=== PATIENT | female | born 1940 | race Caucasian/White ===

== ENCOUNTER 2017-06-16 11:02 | Emergency (ER) | payer MEDICARE, OTHER ==
[~2017-06-16] VITALS: Ht 157.5 cm; Wt 57.1 kg
[~2017-06-16 11:02] MED LIST: LEVA500T PO; Z.0.NO CURRENT MEDS
[2017-06-16 11:08] VITALS: BP 170/77; PULSE 85; RESP 16; TEMP 98.3; O2SAT 100
--- NOTE | 2017-06-16 11:38 | PD ---
HPI Chief Complaint: GI Complaint Time Seen by Provider: 11:37 Travel History International Travel<30 days: No Contact w/Intl Traveler<30days: No Traveled to known affect area: No History of Present Illness HPI 77-year-old female came to the emergency room with history of constipation/ obstipation since this morning. Patient says that she goes to the bathroom and moves her bowels every morning. She did so yesterday. Since then she has had normal meals at this morning had some coffee after which she felt like she had to move her bowels but was unsuccessful. She has had issues with constipation in the past which has been relieved by administering enema at home. Patient says she tried doing the same this morning but was unable to retain the enema since that came out as soon as she put it in. She has been very uncomfortable since then. She says she has this urge that she has to go and can feel the ball of stool in her rectum but has been unsuccessful in moving it. She says she feels weak as well and dehydrated. Vital signs are stable. Patient says she is not on any medications because generally she does not like taking medications. She is not on any laxatives or any fiber etc. PFSH Past Medical History Narrative Medical List of her past medical, surgical, social and family history is reviewed from the nursing note Cancer: No Cardiovascular Problems: Yes Endocrine: No Genitourinary: No Immune Disorder: No Musculoskeletal: No Neurologic: No Psychiatric: No Reproductive: No Respiratory: Yes Menopausal: Yes Social History Alcohol Use: No Tobacco Use: No Substance Use: No Allergies-Medications (Allergen,Severity, Reaction): Coded Allergies: No Known Allergies (Unverified Adverse Reaction, Unknown, 06/16/17) Comments List of her allergies reviewed from the nursing note. Reported Meds & Prescriptions Reported Meds & Active Scripts Active Miralax Powder (Polyethylene Glycol 3350 Powder) 17 Gm Powd 17 Gm PO DAILY Mix and dissolve one measuring cap-ful (17 grams) in water or juice. Reported Losartan (Losartan Potassium) 25 Mg Tab 25 Mg PO HS Narrative Medication List of her home medications reviewed from the nursing note Review of Systems Except as stated in HPI: all other systems reviewed are Neg Gastrointestinal: Positive: Constipation Physical Exam Narrative GENERAL: Awake, alert, elderly, moderate distress SKIN: Focused skin assessment warm/dry. HEAD: Atraumatic. Normocephalic. EYES: Pupils equal and round. No scleral icterus. No injection or drainage. ENT: No nasal bleeding or discharge. Mucous membranes pink and moist. NECK: Trachea midline. No JVD. CARDIOVASCULAR: Regular rate and rhythm. No murmur appreciated. RESPIRATORY: No accessory muscle use. Clear to auscultation. Breath sounds equal bilaterally. GASTROINTESTINAL: Abdomen soft, non-tender, nondistended. Hepatic and splenic margins not palpable. Rectal exam reveals a ball of stool MUSCULOSKELETAL: No obvious deformities. No clubbing. No cyanosis. No edema. NEUROLOGICAL: Awake and alert. No obvious cranial nerve deficits. Motor grossly within normal limits. Normal speech. PSYCHIATRIC: Appropriate mood and affect; insight and judgment normal. Data Data Last Documented VS Vital Signs Date Time Temp Pulse Resp B/P (MAP) Pulse Ox O2 Delivery O2 Flow Rate FiO2 06/16/17 13:25 06/16/17 12:45 78 16 100 Room Air 06/16/17 11:08 98.3 Orders Orders Fleets Enema (Adult) (Fleets Enema (Adul (06/16/17 12:00) Fleets Enema (Adult) (Fleets Enema (Adul (06/16/17 12:00) Ed Discharge Order (06/16/17 12:56) MDM Medical Decision Making Medical Screen Exam Complete: Yes Emergency Medical Condition: Yes Medical Record Reviewed: Yes Differential Diagnosis Rectal pain, fecal impaction Narrative Course 11:55 AM I have ordered for 2 fleets enema. Awaiting for the result. Patient will be reassessed by me in a bit. 12:54 PM I was told that patient had good result from just 1 Fleet Enema. She feels much better. She will be discharged home. I will discharge her home on a prescription for MiraLAX. Procedures EKG Prior to Arrival: No Diagnosis Primary Impression: Rectal pain Additional Impression: Fecal impaction Referrals: Primary Care Physician 2 days Additional Instructions: Drink lots of fluid and high-fiber diet. Take the medication as per the prescription direction. Return to the ER if condition worsens or any other new concerns. Otherwise follow-up with your primary care. Med/Other Pt SpecificInfo: Prescription(s) given Scripts Polyethylene Glycol 3350 Powder (Miralax Powder) 17 Gm Powd 17 GM PO DAILY for Constipation, #1 CAN 0 Refills Mix and dissolve one measuring cap-ful (17 grams) in water or juice. Prov: Jeff Valle MD 06/16/17 Disposition: 01 DISCHARGE HOME Condition: Stable Jeff Valle MD June 16, 2017 11:38
[2017-06-16] MEDS ORDERED: LOSA25TA PO (11:42)
[2017-06-16] MEDS ORDERED: SOD PHOSPHATE/SOD BIPHOSPHATE (ADULT) ENEMA 133ML RECTAL ONE ×2 (12:00)
[2017-06-16 12:45] VITALS: BP 161/86; PULSE 78; RESP 16; O2SAT 100
[2017-06-16] MEDS ORDERED: MIRA3350 PO (12:55)
== END 2017-06-16 13:30 | disposition home or self-care (01) ==
LOC: PHED 11:02
DX: K62.89 Other specified diseases of anus and rectum (principal); K56.41 Fecal impaction; Z79.899 Other long term (current) drug therapy
CPT/HCPCS: 99283

== ENCOUNTER 2017-09-08 18:38 | Observation (INO) ==
[2017-09-08] MEDS ORDERED: Morphine Sulfate Inj 2 MG/ML Vial IV.PUSH ONE (19:55)
--- NOTE | 2017-09-08 20:02 | XR ---
EXAM DATE: 09/08/2017 7:55 PM EDT AGE/SEX: 77 years / Female INDICATIONS: Chest pain CLINICAL DATA: This is the patient's initial encounter. Patient reports that signs and symptoms have been present for 1 day and indicates a pain score of 0/10. MEDICAL/SURGICAL HISTORY: None. None. COMPARISON: No prior exams available for comparison. FINDINGS: A single AP view of the chest demonstrates the lungs to be symmetrically aerated without evidence of mass, infiltrate or effusion. The cardiomediastinal contours are unremarkable. Osseous structures a re intact. CONCLUSION: No acute cardiopulmonary process. Electronically signed by: Faheem Garcia MD 09/08/2017 8:01 PM EDT
--- NOTE | 2017-09-08 20:02 | ED ---
HPI General Chief Complaint: Chest Pain Stated Complaint: Chest Pain Time Seen by Provider: 09/08/17 19:45 Source: patient, family, RN notes reviewed and old records reviewed Mode of arrival: ambulatory Limitations: no limitations History of Present Illness HPI narrative: 77-year-old female presents to the emergency department for evaluation of dizziness, headache, palpitations, chest pain. Patient states that she has history of palpitations. However, today, she started with dizziness that is worsened throughout the day. She states it became more severe after dinner with an associated generalized headache. She states the headache is 6/10, pressure. She states that she has had headaches like this in the past. She states that the dizziness is starting to become like the room is spinning around her. She states that she has had in the past as well. Patient denies any weakness, syncope. She states that she started with midsternal chest pain after dinner as well. She states that she was seeing a transfer professor approximately 2 years ago, but has not seen a transfer professor recently. Patient states the pain is pressure, 3/10, without radiation. She reports associated shortness of breath. Patient has not taken an aspirin. She does have history of hypertension. Moderate severity. Patient does report having a recent surgery approximately 3 weeks ago. She denies any history DVT or PE. MD complaint: chest pain Complete Quality Measures for STEMI Alert Patients Onset (ago): hour(s) Duration: constant Onset: after eating Pain location: substernal Severity: moderate Severity scale (1-10): 3 Quality: other Pain radiation: none Relieving factors: nothing Exacerbating factors: nothing Associated symptoms: other (Dizziness and headache) Related Data On Oral Contraceptives: No Home Medications Medication Instructions Recorded Confirmed conjugated estrogens [Premarin] 1 applic VAGINAL BID 09/08/17 09/08/17 losartan 25 mg PO BID 09/08/17 09/08/17 Allergies Allergy/AdvReac Type Severity Reaction Status Date / Time No Known Allergies Allergy Verified 09/08/17 19:19 Review of Systems Except as stated in HPI: all other systems reviewed are negative [facility] Medical History Medical History HTN (hypertension) (Acute) Social History Social History Substance History: No History of Abuse Second Hand Smoke Exposure: No Smoking Status: Never smoker How Often Do You Have a Drink Containing Alcohol: Never Recent Travel in [facility] within the Last 8 Weeks: No Recent Out of Country Travel within the Last 8 Weeks: No Immunization History Tetanus Immunization: Unsure Hx Influenza Vaccine This Season: No Exam Narrative Exam Narrative: GENERAL: Well-nourished, well-developed female patient, afebrile SKIN: Focused skin assessment warm/dry. HEAD: Normocephalic. Atraumatic ENT: Mucosa pink and moist. No erythema or exudates. No uvular edema. No uvular , palatal, or tonsillar deviation. Airway patent. Nasal turbinates appear normal without nasal blood, purulent drainage or septal hematoma. Bilateral tympanic membranes clear without erythema or perforation. EYES: No scleral icterus. No injection or drainage. NECK: Supple, trachea midline. No JVD or lymphadenopathy. CARDIOVASCULAR: Regular rate and rhythm without murmurs, gallops, or rubs. Bilateral radial and pedal pulses are 2+ RESPIRATORY: Breath sounds equal bilaterally. No accessory muscle use. Lung sounds are clear to auscultation GASTROINTESTINAL: Abdomen soft, non-tender, nondistended. MUSCULOSKELETAL: No cyanosis, or edema. Bilateral upper and lower extremity strength 5/5. All extremities are neurovascularly intact BACK: Nontender without obvious deformity. No CVA tenderness. NEUROLOGICAL: Awake and alert. Cranial nerves II through XII intact. Motor and sensory grossly within normal limits. Five out of 5 muscle strength in all muscle groups. Normal speech. Finger to nose is normal bilaterally. Heel to fields is normal bilaterally Course Initial Documented Vital Signs Temperature 98 F 09/08/17 18:43 Pulse Rate 74 09/08/17 18:43 Respiratory Rate 16 09/08/17 18:43 Blood Pressure 193/91 H 09/08/17 18:43 Pulse Oximetry 100 09/08/17 18:43 Last Documented Vital Signs Temperature 98 F 09/08/17 18:43 Pulse Rate 75 09/08/17 20:20 Respiratory Rate 18 09/08/17 20:20 Blood Pressure 165/98 H 09/08/17 20:20 Pulse Oximetry 100 09/08/17 20:20 Medical Decision Making MDM Narrative Medical decision making narrative: 77-year-old female presents to the emergency department for evaluation of dizziness, headache, palpitations, chest pain. EKG , CBC, BMP, troponin, PTT, PT/INR, d-dimer, chest x-ray, CT of the brain are ordered and pending. Patient is given morphine 2 mg IV, Zofran 4 mg ODT, meclizine 25 mg p.o. Aspirin will be given after CT the brain is completed. EKG shows sinus rhythm, heart rate 65, no acute ST changes. CBC shows no acute abnormalities. CMP is unremarkable. Troponin is less than 0.02. PTT is 26.0. PT/INR is 10.5/1.0. D-dimer is 0.35. Chest x-ray shows no acute cardiopulmonary disease. CT of the brain shows no intracranial abnormality. Patient is given ASA 162 mg PO. Patient will be admitted to the chest pain center for further evaluation. On examination, she states she is feeling much better. Patient agrees to chest pain center admission. Differential Diagnosis Differential Diagnosis: Anxiety versus vertigo versus intracranial hemorrhage versus CVA versus TIA versus electrolyte abnormality versus ACS versus pneumonia versus pneumothorax versus PE Medical Records Medical records reviewed: Yes I reviewed the patient's medical records. Lab Data Result diagrams: 09/08/17 18:55 09/08/17 18:55 Lab Results 09/08/17 09/08/17 09/08/17 Range/Units 18:55 18:55 18:55 WBC 5.9 (4.0-11.0) th/mm3 RBC 4.38 (4.00-5.30) mil/mm3 Hgb 13.3 (11.6-15.3) gm/dL Hct 39.7 (35.0-46.0) % MCV 90.7 (80.0-100.0) fL MCH 30.4 (27.0-34.0) pg MCHC 33.5 (32.0-36.0) % RDW 12.8 (11.6-17.2) % Plt Count 303 (150-450) th/mm3 MPV 7.6 (7.0-11.0) fL Neut % (Auto) 59.5 (16.0-70.0) % Lymph % (Auto) 29.9 (9.0-44.0) % [place] % (Auto) 8.7 H (0.0-8.0) % Eos % (Auto) 1.2 (0.0-4.0) % Baso % (Auto) 0.7 (0.0-2.0) % Neut # (Auto) 3.5 (1.8-7.7) th/mm3 Lymph # (Auto) 1.8 (1.0-4.8) th/mm3 [place] # (Auto) 0.5 (0.0-0.9) th/mm3 Eos # (Auto) 0.1 (0.0-0.4) th/mm3 Baso # (Auto) 0.0 (0.0-0.2) th/mm3 WBC Differential . Differential Comment Auto diff final PT 10.5 (9.8-11.6) sec INR 1.0 Ratio APTT 26.0 (24.3-30.1) sec D-Dimer Quant (PE/DVT) (0.00-0.50) mg/L FEU Sodium 143 (136-145) meq/L Potassium 3.7 (3.5-5.1) meq/L Chloride 106 (98-107) meq/L Carbon Dioxide 28.7 (21.0-32.0) meq/L Anion Gap 8 (5-15) meq/L BUN 14 (7-18) mg/dL Creatinine 0.77 (0.50-1.00) mg/dL Estimated GFR 73 L (>89) mL/min Random Glucose 82 (74-106) mg/dL Calcium 9.1 (8.5-10.1) mg/dL Total Bilirubin 0.2 (0.2-1.0) mg/dL AST 6 L (15-37) U/L ALT 14 (10-53) U/L Alkaline Phosphatase 87 (45-117) U/L Troponin I Less than 0.02 L (0.02-0.05) ng/mL Total Protein 7.2 (6.4-8.2) g/dL Albumin 3.5 (3.4-5.0) g/dL 09/08/17 Range/Units 18:55 WBC (4.0-11.0) th/mm3 RBC (4.00-5.30) mil/mm3 Hgb (11.6-15.3) gm/dL Hct (35.0-46.0) % MCV (80.0-100.0) fL MCH (27.0-34.0) pg MCHC (32.0-36.0) % RDW (11.6-17.2) % Plt Count (150-450) th/mm3 MPV (7.0-11.0) fL Neut % (Auto) (16.0-70.0) % Lymph % (Auto) (9.0-44.0) % [place] % (Auto) (0.0-8.0) % Eos % (Auto) (0.0-4.0) % Baso % (Auto) (0.0-2.0) % Neut # (Auto) (1.8-7.7) th/mm3 Lymph # (Auto) (1.0-4.8) th/mm3 [place] # (Auto) (0.0-0.9) th/mm3 Eos # (Auto) (0.0-0.4) th/mm3 Baso # (Auto) (0.0-0.2) th/mm3 WBC Differential Differential Comment PT (9.8-11.6) sec INR Ratio APTT (24.3-30.1) sec D-Dimer Quant (PE/DVT) 0.35 (0.00-0.50) mg/L FEU Sodium (136-145) meq/L Potassium (3.5-5.1) meq/L Chloride (98-107) meq/L Carbon Dioxide (21.0-32.0) meq/L Anion Gap (5-15) meq/L BUN (7-18) mg/dL Creatinine (0.50-1.00) mg/dL Estimated GFR (>89) mL/min Random Glucose (74-106) mg/dL Calcium (8.5-10.1) mg/dL Total Bilirubin (0.2-1.0) mg/dL AST (15-37) U/L ALT (10-53) U/L Alkaline Phosphatase (45-117) U/L Troponin I (0.02-0.05) ng/mL Total Protein (6.4-8.2) g/dL Albumin (3.4-5.0) g/dL Imaging Data Radiologist's impression: Chest X-Ray 09/08/17 19:32 CONCLUSION: Head CT 09/08/17 19:55 CONCLUSION: Discharge Plan Discharge Disposition Patient Disposition: 30 Still Patient Discharge Details Diagnosis: Chest pain, Heart palpitations Physicians Team ED Provider: Yasmine Campa ED Midlevel Provider: Ailyn Dorman Primary Care Provider: Arianna Peralta Rxs /Orders / Referrals /Forms Prescriptions: No Action losartan 25 mg Tablet 25 mg PO BID RF: 0 conjugated estrogens [Premarin] 0.625 mg/gram Cream 1 applic VAGINAL BID RF: 0 Discharge Instructions Patient Printed Instructions: Chest Pain (ED) Discharge Interventions Interventions: Vital Signs Last Done: 09/08/17 19:11 Status ED Status: With Doctor
[2017-09-08 20:26] LABS: Baso % (Auto) 0.7 % (0.0-2.0); Eos # (Auto) 0.1 th/mm3 (0.0-0.4); Eos % (Auto) 1.2 % (0.0-4.0); Hematocrit 39.7 % (35.0-46.0); Hemoglobin 13.3 gm/dL (11.6-15.3); Lymph # (Auto) 1.8 th/mm3 (1.0-4.8); Lymph % (Auto) 29.9 % (9.0-44.0); Mean Corpuscular HGB Conc 33.5 % (32.0-36.0); Mean Corpuscular Hemoglobin 30.4 pg (27.0-34.0); Mean Corpuscular Volume 90.7 fL (80.0-100.0); Mean Platelet Volume 7.6 fL (7.0-11.0); Mono # (Auto) 0.5 th/mm3 (0.0-0.9); Mono % (Auto) 8.7 % (0.0-8.0); Neut # (Auto) 3.5 th/mm3 (1.8-7.7); Neut % (Auto) 59.5 % (16.0-70.0); Platelet Count 303 th/mm3 (150-450); Red Blood Count 4.38 mil/mm3 (4.00-5.30); Red Cell Distribution Width 12.8 % (11.6-17.2); White Blood Count 5.9 th/mm3 (4.0-11.0)
[2017-09-08 20:37] LABS: Prothrombin Time 10.5 sec (9.8-11.6)
[2017-09-08 20:43] LABS: Alanine Aminotransferase 14 U/L (10-53); Albumin 3.5 g/dL (3.4-5.0); Anion Gap 8 meq/L (5-15); Aspartate Aminotransferase 6 U/L (15-37); Blood Urea Nitrogen 14 mg/dL (7-18); Calcium 9.1 mg/dL (8.5-10.1); Carbon Dioxide 28.7 meq/L (21.0-32.0); Chloride 106 meq/L (98-107); Glomerular Filtration Rate 73 mL/min (>89); Glucose,Random 82 mg/dL (74-106); Potassium 3.7 meq/L (3.5-5.1); Sodium 143 meq/L (136-145)
[2017-09-08 20:48] LABS: Alkaline Phosphatase 87 U/L (45-117); Total Protein 7.2 g/dL (6.4-8.2)
--- NOTE | 2017-09-08 21:13 | CT ---
EXAM DATE: 09/08/2017 8:43 PM EDT AGE/SEX: 77 years / Female INDICATIONS: Cephalgia, dizziness. CLINICAL DATA: This is the patient's initial encounter. Patient reports that signs and symptoms have been present for 1 day and indicates a pain score of 2/10. MEDICAL/SURGICAL HISTORY: Hypertension. None. RADIATION DOSE: 34.94 CTDI (mGy) COMPARISON: No prior exams available for comparison. TECHNIQUE: CT of the head without contrast. Using automated exposure control and adjustment of the mA and/or kV according to patient size, radiation dose was kept as low as reasonably achievable to ob tain optimal diagnostic quality images. DICOM format image data is available electronically for revi ew and comparison. FINDINGS: Cerebrum: The ventricles are normal for age. No evidence of midline shift, mass lesion, hemorrhage or acute infarction. No extraaxial fluid collections are seen. Posterior Fossa: The cerebellum and brainstem are intact. The 4th ventricle is midline. The cerebe llopontine angle is unremarkable. Extracranial: The visualized portion of the orbits is intact. Skull: The calvaria is intact. No evidence of skull fracture. No intracranial abnormality is seen. . Electronically signed by: Faheem Garcia MD 09/08/2017 9:12 PM EDT
[2017-09-08] MEDS ORDERED: Acetaminophen 500 MG Tablet PO PRN (21:43)
[2017-09-08 23:28] LABS: Creatine Kinase 42 U/L (26-192)
[2017-09-09 03:06] LABS: Creatine Kinase 42 U/L (26-192)
--- NOTE | 2017-09-09 11:14 | P.HPCA ---
History of Present Illness Primary Care Physician: Arianna Peralta MD Chief Complaint: Palpitations and chest pain History of Present Illness: This is a 77-year-old female with history of hypertension and recent surgery of a rectal/uterine/bladder suspension that presents to ED via private vehicle with complaint of palpitations, chest pains, and headache. [place] that her blood pressure is high. Describes palpitations as her being able to feel a fast heartbeat in her throat and states that "he can see it over my clothing." This is been going on for years. States she had this evaluated by Dr. Parsons a few years ago and had a Holter monitor revealing couple episodes of a fast beat and early beats but no medical intervention was needed. States that the symptoms have become more frequent over the last few weeks. Seems to have become more frequent just prior to her surgery. She states she has had discuss the vaginal cream with her surgeon recently. States that she was given a vaginal cream and states that it would make the area itch and her whole body would feel weird. States that was changed to a different cream and she tried on Tuesday which made her feel the same. Has not tried to reapply. Has not further discussed with her surgeon. Also clinical frontal headache and attributes that to having higher blood pressure. States she takes losartan 25 mg twice daily. Currently feeling okay. Patient has history of hypertension and palpitations. Recent surgery. Denies family history of CAD. Patient is a non-smoker. - Diagnosis (1) Chest pain (2) Palpitations (3) Hypertension Review of Systems General: Patient denies fevers, chills, and recent travel. HEENT: She had a frontal headache. Patient denies sore throat, difficulty swallowing. Cardiovascular: Has the chest discomfort as mentioned above. She has had intermittently sensation of heart beating rapidly and would have a sensation of the heartbeat in her throat for several years. No syncope. Denies diaphoresis. Respiratory: Occasional shortness of breath. Denies inspirational chest discomfort. Denies coughing wheezing or hemoptysis. GI: Patient denies nausea, vomiting, diarrhea, abdominal pain, bloody stools. Musculoskeletal: Patient denies joint pain or edema. Denies calf pain or edema. Neurovascular: She had a frontal headache. Patient denies numbness, tingling, weakness in extremities. Endocrine: Denies polyuria and polydipsia. Hematologic: Denies easy bruising. Skin: Denies rash or itching. PMFSH - History History Provided By: Patient - Medical History Medical History: Medical History (Last Updated 09/09/17 @ 09:30 by Edel Scott RN) HTN (hypertension) Prolapse of female pelvic organs - Tobacco History Second Hand Smoke Exposure: No Tobacco Use In Past 30 Days: No Smoking Status: Never smoker - Alcohol History How Often Do You Have a Drink Containing Alcohol: Never - Substance Use History Substance History: No History of Abuse - Travel History Recent Travel in the [facility] Within the Last 8 Weeks: No Recent Travel Out of the Country Within the Last 8 Weeks: No - Immunization History Tetanus Immunization: Unsure Hx Influenza Vaccine This Season: No Medications and Allergies Active Medications: Active Medications Acetaminophen (Tylenol) 500 mg PO Q4H PRN PRN Reason: HEADACHE Losartan Potassium (Cozaar) 25 mg PO BID ИРИНА Sodium Chloride (Ns Flush) 2 ml IV.FLUSH UNSCH PRN PRN Reason: FLUSH AFTER USING IV ACCESS Sodium Chloride (Ns Flush) 2 ml IV.FLUSH BID ИРИНА Last Admin: 09/09/17 09:33 Dose: Not Given Sodium Chloride (Ns Flush) 2 ml IV.FLUSH PRN PRN PRN Reason: FLUSH AFTER USING IV ACCESS Allergies Allergy/AdvReac Type Severity Reaction Status Date / Time No Known Allergies Allergy Verified 09/08/17 19:19 Home Medications Medication Instructions Recorded Confirmed Type conjugated estrogens [Premarin] 1 applic VAGINAL BID 09/08/17 09/09/17 History losartan 25 mg PO BID 09/08/17 09/09/17 History Exam Vital signs: Vital Signs 09/08/17 18:43 09/08/17 19:11 09/08/17 20:20 Temperature 98 F Pulse Rate 74 78 75 Respiratory Rate 16 18 18 Blood Pressure 193/91 H 182/98 H 165/98 H Pulse Oximetry 100 100 100 09/08/17 22:34 09/09/17 00:00 09/09/17 03:59 Temperature 98 F 97.6 F Pulse Rate 77 66 66 Respiratory Rate 18 18 18 Blood Pressure 164/92 H 169/86 H 120/73 Pulse Oximetry 100 99 97 09/09/17 08:00 09/09/17 08:32 09/09/17 09:00 Temperature 98.3 F Pulse Rate 68 79 80 Respiratory Rate 20 Blood Pressure 165/87 H Pulse Oximetry 97 99 Intake & Output 09/08/17 09/09/17 09/09/17 18:59 06:59 18:59 Intake Total 0 / 0 Balance 0 / 0 Weight 52.163 kg 52.163 kg Intake: Oral 0 / 0 Other: # Voids 1 Weight On Admission 52.163 kg Narrative: GENERAL: This is a well-nourished, well-developed patient, in no apparent distress. Patient speaks in clear complete sentences. Patient is pleasant. HEENT: Head is atraumatic and normocephalic. Neck is supple without lymphadenopathy and trachea is midline. No JVD or carotid bruits. CARDIOVASCULAR: Regular rate and rhythm without murmurs, gallops, or rubs. RESPIRATORY: Clear to auscultation. Breath sounds equal bilaterally. No wheezes , rales, or rhonchi. Chest wall is nontender. No use of accessory muscles. GASTROINTESTINAL: Abdomen is nontender, nondistended. Abdomen soft. No obvious pulsatile mass or bruit. No CVA tenderness. Strong femoral pulses bilaterally. Normal bowel sounds in all quadrants. MUSCULOSKELETAL: Patient is moving upper and lower extremities freely. No calf tenderness or edema, no Homans sign. Strong pulses in upper and lower extremities. NEUROLOGICAL: Patient is alert and oriented. Cranial nerves 2-12 are grossly intact. No focal deficits and speech is clear. SKIN: No rash and turgor is normal. Results 09/08/17 18:55 09/08/17 18:55 Cardiac Enzymes 09/08/17 09/08/17 09/09/17 Range/Units 18:55 22:53 02:05 AST 6 L (15-37) U/L Troponin I Less than 0.02 L Less than 0.02 L Less than 0.02 L (0.02-0.05) ng/mL Coagulation 09/08/17 Range/Units 18:55 PT 10.5 (9.8-11.6) sec APTT 26.0 (24.3-30.1) sec CBC 09/08/17 Range/Units 18:55 WBC 5.9 (4.0-11.0) th/mm3 RBC 4.38 (4.00-5.30) mil/mm3 Hgb 13.3 (11.6-15.3) gm/dL Hct 39.7 (35.0-46.0) % Plt Count 303 (150-450) th/mm3 Neut # (Auto) 3.5 (1.8-7.7) th/mm3 Lymph # (Auto) 1.8 (1.0-4.8) th/mm3 Wilkes # (Auto) 0.5 (0.0-0.9) th/mm3 Eos # (Auto) 0.1 (0.0-0.4) th/mm3 Baso # (Auto) 0.0 (0.0-0.2) th/mm3 Comprehensive Metabolic Panel 09/08/17 Range/Units 18:55 Sodium 143 (136-145) meq/L Potassium 3.7 (3.5-5.1) meq/L Chloride 106 (98-107) meq/L Carbon Dioxide 28.7 (21.0-32.0) meq/L BUN 14 (7-18) mg/dL Creatinine 0.77 (0.50-1.00) mg/dL Calcium 9.1 (8.5-10.1) mg/dL AST 6 L (15-37) U/L ALT 14 (10-53) U/L Alkaline Phosphatase 87 (45-117) U/L Total Protein 7.2 (6.4-8.2) g/dL Albumin 3.5 (3.4-5.0) g/dL Intake and Output 09/08/17 09/09/17 09/09/17 22:59 06:59 14:59 Intake Total 0 / 0 Balance 0 / 0 Intake: Oral 0 / 0 Other: # Voids 1 Weight 52.163 kg 52.163 kg Weight On Admission 52.163 kg EKG interpretations - EKG EKG shows: sinus rhythm (EKGs have been sinus rhythm without significant ST segment depressions or elevations.) Caprini VTE Risk Assessment Caprini VTE Risk Assessment: Moderate/High Risk (score >= 2) Caprini Risk Assessment Model: Point Value = 1 Point Value = 2 Point Value = 3 Point Value = 5 Age 41-60 Minor surgery BMI > 25 kg/m2 Swollen legs Varicose veins or History of unexplained or recurrent spontaneous Oral contraceptives or hormone replacement Sepsis (< 1 month) Serious lung disease, including pneumonia (< 1 month) Abnormal pulmonary function Acute myocardial infarction Congestive heart failure (< 1 month) History of inflammatory bowel disease Medical patient at bed rest Age 61-74 Arthroscopic surgery Major open surgery (> 45 min) Laparoscopic surgery (> 45 min) Malignancy Confined to bed (> 72 hours) Immobilizing plaster cast Central venous access Age >= 75 History of VTE Family history of VTE Factor V Leiden Prothrombin [id number] Lupus anticoagulant Anticardiolipin antibodies Elevated serum homocysteine Heparin-induced thrombocytopenia Other congenital or acquired thrombophilia Stroke (< 1 month) Elective arthroplasty Hip, pelvis, or leg fracture Acute spinal cord injury (< 1 month) Prophylaxis Regimen: Total Risk Factor Score Risk Level Prophylaxis Regimen 0-1 Low Early ambulation 2 Moderate Order ONE of the following: *Sequential Compression Device (SCD) *Heparin 5000 units SQ BID 3-4 Higher Order ONE of the following medications: *Heparin 5000 units SQ TID *Enoxaparin/Lovenox 40 mg SQ daily (WT < 150 kg, CrCl > 30 mL/min) *Enoxaparin/Lovenox 30 mg SQ daily (WT < 150 kg, CrCl > 10-29 mL/min) *Enoxaparin/Lovenox 30 mg SQ BID (WT < 150 kg, CrCl > 30 mL/min) AND/OR *Sequential Compression Device (SCD) 5 or more Highest Order ONE of the following medications: *Heparin 5000 units SQ TID (Preferred with Epidurals) *Enoxaparin/Lovenox 40 mg SQ daily (WT < 150 kg, CrCl > 30 mL/min) *Enoxaparin/Lovenox 30 mg SQ daily (WT < 150 kg, CrCl > 10-29 mL/min) *Enoxaparin/Lovenox 30 mg SQ BID (WT < 150 kg, CrCl > 30 mL/min) AND *Sequential Compression Device (SCD) Assessment and Plan - Assessment (1) Chest pain Code(s): R07.9 - Chest pain, unspecified Status: Acute (2) Palpitations Code(s): R00.2 - Palpitations Status: Acute (3) Hypertension Code(s): I10 - Essential (primary) hypertension Status: Acute - Plan * Chest pain: Patient has had serial cardiac enzymes and EKGs for ruling out purposes. She has been seen by Dr. Wang cardiology in the chest pain center and will undergo a Lexiscan. Patient will be discharged home if her stress test is nonischemic with instructions to follow-up with PCP. Patient will follow up with her surgeon. Return to ED for interval issues. * Palpitations: Upon reviewing telemetry, patient had a 5 beat run of PACs little before 2 in the morning. She will need follow-up with PCP. Patient is stable at this time. She is agreeable to this plan. H&P: Quality - VTE Deep Vein Thrombosis/Pulmonary Embolism Present on Admission: Yes (1) Chest pain Qualifiers: Chest pain type: unspecified Qualified Code(s): R07.9 - Chest pain, unspecified
--- NOTE | 2017-09-09 11:22 | ECG ---
Date Performed: 09/09/2017 Time Performed: 01:41:05 PTAGE: 77 years EKG: Sinus rhythm NORMAL ECG PREVIOUS TRACING : 09/08/2017 22.54 Since previous tracing, no significant change noted DOCTOR: Darrel Wang Interpretating Date/Time 09/09/2017 11:20:57
--- NOTE | 2017-09-09 11:23 | ECG ---
Date Performed: 09/08/2017 Time Performed: 22:54:06 PTAGE: 77 years EKG: Sinus rhythm NORMAL ECG PREVIOUS TRACING : 09/08/2017 19.59 Since previous tracing, no significant change noted DOCTOR: Darrel Wang Interpretating Date/Time 09/09/2017 11:22:44
--- NOTE | 2017-09-09 11:27 | ECG ---
Date Performed: 09/08/2017 Time Performed: 19:59:27 PTAGE: 77 years EKG: Sinus rhythm NORMAL ECG PREVIOUS TRACING : 09/10/2004 00.55 Since previous tracing, no significant change noted DOCTOR: Darrel Wang Interpretating Date/Time 09/09/2017 11:26:30
[2017-09-09] MEDS ORDERED: Regadenoson Inj 0.4 MG/5 ML Syringe IV.PUSH ONE (14:08)
--- NOTE | 2017-09-09 15:54 | NM ---
EXAM DATE: 09/09/2017 3:41 PM EDT AGE/SEX: 77 years / Female INDICATIONS:Angina. . Chest pain and palpitations. CLINICAL DATA: This is the patient's initial encounter. Patient reports that signs and symptoms have been present for 1 day and indicates a pain score of 6/10. MEDICAL/SURGICAL HISTORY: Hypertension. None. COMPARISON: No prior exams available for comparison. DOSE: 8.5 mCi Tc 99m Myoview at rest 25.2 mCi [id number] at stress 0.4 mg Lexiscan STRESS SYMPTOMS: None. EJECTION FRACTION: >70 % TECHNIQUE: The patient underwent pharmacologic stress with infusion of prescribed dose. Continuous ECG tracing was monitored during stress. Gated SPECT imaging was performed after stress and conventi onal SPECT imaging was performed at rest. The examination was performed on a SPECT/CT scanner, both attenuation and non-corrected datasets were reviewed. FINDINGS: Distribution: The maximum perfused segment at stress is in the inferior wall. Perfusion Study: The pattern of perfusion at stress is within normal limits. Gated Study: There are intact wall motion and wall thickening without hypokinetic or dyskinetic segm ents. The ejection fraction is calculated at >70%. RISK CATEGORY: Low (<1% Annual Motality Rate) CONCLUSION: Unremarkable myocardial perfusion. Electronically signed by: Ras Lim MD 09/09/2017 3:53 PM EDT
--- NOTE | 2017-09-09 16:01 | TR ---
Date Performed: 09/09/2017 Time Performed: 14:10:02 DOCTOR: Darrel Wang DRUG LIST: CLINICAL HISTORY: REASON FOR TEST: CHEST PAIN REASON FOR ENDING: OBSERVATION: CONCLUSION: COMMENTS: Lexiscan stress test was performed under standard four minute protocol. Radionuclide was injected one minute prior to ending the test. No electrocardiographic abormalities were present t o suggest ischemia. Nuclear imaging and interpretation are pending.
== END 2017-09-09 17:14 | disposition home or self-care (01) ==
LOC: NEPE 18:38 → NEPHCDU 18:38 → NEDA 18:38 → NEPHCDU 09-09
DX: R51 Headache; Z79.899 Other long term (current) drug therapy; R00.2 Palpitations; R07.89 Other chest pain; I10 Essential (primary) hypertension